=== PATIENT | male | born 1930 | race Caucasian/White ===

== ENCOUNTER 2016-05-03 20:50 | Inpatient (IN) | payer MEDICARE, OTHER ==
[2016-05-03] MEDS ORDERED: NALOXONE 0.4 MG/ML 1 ML VIAL IV PRN (21:21)
--- NOTE | 2016-05-03 21:21 | ED ---
General Adult HPI - General Chief complaint: Weakness Stated complaint: Weakness Time Seen by Provider: 05/03/16 20:59 Source: patient, EMS, RN notes reviewed, old records reviewed Mode of arrival: EMS Limitations: altered mental status, physical limitation - History of Present Illness Initial comments: Patient is a pleasant 85-year-old male presenting to the emergency Department as a transfer from [facility]. Patient transferred for level of care and cardiac care. Patient has dementia and is a very poor historian. Patient states he feels fine and has no complaints. Patient reportedly had dehydration and urinary tract infection. Patient had new-onset A. fib with RVR. Patient was provided fluid boluses. No reported history of atrial fibrillation. Review of Systems ROS Statement: Those systems with pertinent positive or pertinent negative responses have been documented in the HPI. ROS Other: All systems not noted in ROS Statement are negative. Constitutional: Denies: fever Eyes: Denies: eye pain ENT: Denies: ear pain Respiratory: Denies: cough Cardiovascular: Denies: chest pain Endocrine: Reports: fatigue Gastrointestinal: Denies: abdominal pain Genitourinary: Denies: urgency Skin: Denies: rash Neurological: Denies: headache Past Medical History Past Medical History: Dementia, Hyperlipidemia, Hypertension Additional Past Medical History / Comment(s): pt poor historian - info obtained from [employer] paperwork History of Any Multi-Drug Resistant Organisms: Unobtainable Past Surgical History: Heart Catheterization With Stent, Orthopedic Surgery Past Psychological History: No Psychological Hx Reported Smoking Status: Never smoker Past Alcohol Use History: None Reported, Unable to Obtain Past Drug Use History: None Reported General Exam Limitations: altered mental status, physical limitation General appearance: alert, in no apparent distress Head exam: Present: atraumatic Eye exam: Present: normal appearance, PERRL ENT exam: Present: mucous membranes dry Neck exam: Present: normal inspection Respiratory exam: Present: normal lung sounds bilaterally Cardiovascular Exam: Present: regular rate, normal rhythm GI/Abdominal exam: Present: soft. Absent: tenderness Extremities exam: Present: normal inspection Neurological exam: Present: alert, altered. Absent: motor sensory deficit Expanded Patient oriented to: Present: person. Absent: place, time Speech: Present: fluid speech Motor strength exam: RUE: 5, LUE: 5, RLE: 5, LLE: 5 Eye Response: (4) open spontaneously Motor Response: (6) obeys commands Verbal Response: (4) confused conversation Psychiatric exam: Present: normal affect, normal mood Skin exam: Absent: rash Course Vital Signs 05/03/16 20:58 Temperature 97.3 F L Pulse Rate 70 Respiratory 20 Rate Blood Pressure 98/60 O2 Sat by Pulse 97 Oximetry EKG Findings - EKG Comments: EKG Findings:: Normal sinus rhythm at 81. MD 132. QRS 90. QT 394. QTC 457. left axis. Normal QRS. Normal ST-T. Motion artifact is present. Medical Decision Making - Medical Decision Making Patient updated on plan. Case was discussed with practitioner Blanca head boys golf coach, who will admit for Dr. Kahn, covering for Dr. regine Chin. Admission orders written. Disposition Clinical Impression: Dehydration, Atrial fibrillation with RVR, Urinary tract infection Disposition: ADMITTED IP TO THIS HOSP
[2016-05-03] MEDS ORDERED: HEPARIN SODIUM,PORCINE 5,000 UNIT/ML 1 ML VIAL IV PRN (21:25)
[2016-05-03] MEDS ORDERED: HEPARIN SODIUM,PORCINE/D5W PMX 25,000 UNIT in DEXTROSE/WATER 1 500ML.BAG IV SCH (21:30)
[2016-05-03] MEDS: SODIUM CHLORIDE 0.9% 1,000 ML IV SCH (21:42)
[2016-05-03] MEDS ORDERED: LEVOFLOXACIN 500MG-D5W PMX 500 MG in DEXTROSE/WATER 1 100ML.BAG IVPB SCH (22:00)
[2016-05-03] MEDS: MORPHINE SULFATE 2 MG/ML SYRINGE IVP PRN (23:29)
[2016-05-04 00:09] LABS: Basophils % (A) 0 %; CH 29.6; CHCM 32.6; Eosinophils % (A) 0 %; HCT 33.9 % (39.0-53.0); HDW 2.72; HGB 10.9 gm/dL (13.0-17.5); Luc # (Auto) 0.13; Luc % (Auto) 1; Lymphocytes # (A) 0.6 k/uL (1.0-4.8); Lymphocytes % (A) 6 %; MCH 29.3 pg (25.0-35.0); MCHC 32.2 g/dL (31.0-37.0); MCV 91.1 fL (80.0-100.0); Mean Platelet Volume 8.1; Monocytes # (A) 0.4 k/uL (0-1.0); Monocytes % (A) 4 %; Neutrophils # (A) 9.2 k/uL (1.3-7.7); Neutrophils % (A) 89 %; RBC 3.72 m/uL (4.30-5.90); RDW 13.1 % (11.5-15.5); WBC 10.4 k/uL (3.8-10.6); WBC (Perox) 11.23
[2016-05-04 00:18] LABS: Calcium 7.6 mg/dL (8.4-10.2); Potassium 3.8 mmol/L (3.5-5.1)
[2016-05-04 00:50] LABS: Creatine Kinase MB 2.6 ng/mL (0.0-2.4); Troponin I 0.1 ng/mL (0.000-0.034)
[2016-05-04 06:07] LABS: Basophils % (A) 0 %; CH 29.3; CHCM 32.4; Eosinophils # (A) 0.1 k/uL (0-0.7); Eosinophils % (A) 1 %; HCT 32.1 % (39.0-53.0); HDW 2.76; HGB 10.6 gm/dL (13.0-17.5); Luc # (Auto) 0.14; Luc % (Auto) 1; Lymphocytes % (A) 10 %; MCHC 33.1 g/dL (31.0-37.0); MCV 90.8 fL (80.0-100.0); Mean Platelet Volume 7.9; Monocytes # (A) 0.5 k/uL (0-1.0); Monocytes % (A) 5 %; Neutrophils # (A) 8.8 k/uL (1.3-7.7); Neutrophils % (A) 84 %; RBC 3.53 m/uL (4.30-5.90); RDW 13.1 % (11.5-15.5); WBC 10.5 k/uL (3.8-10.6); WBC (Perox) 11.08
[2016-05-04 06:15] LABS: Calcium 7.7 mg/dL (8.4-10.2); Potassium 3.8 mmol/L (3.5-5.1); Total Bilirubin 0.4 mg/dL (0.2-1.3); Total Protein 5.1 g/dL (6.3-8.2)
[2016-05-04] MEDS: SODIUM CHLORIDE 0.9% 1,000 ML IV SCH (06:18)
[2016-05-04] MEDS: MORPHINE SULFATE 2 MG/ML SYRINGE IVP PRN ×2 (06:18→09:38)
[2016-05-04 06:39] LABS: Creatine Kinase MB 3.3 ng/mL (0.0-2.4); Troponin I 0.092 ng/mL (0.000-0.034)
[2016-05-04] MEDS ORDERED: FAMOTIDINE 20 MG TAB PO SCH (09:00)
--- NOTE | 2016-05-04 10:07 | ECHOF ---
Referral Reason:a fib MEASUREMENTS -------- HEIGHT: 177.8 cm WEIGHT: 67.1 kg BP: 109/63 RVIDd: 3.4 cm (< 3.3) IVSd: 1.2 cm (0.6 - 1.1) LVIDd: 4.2 cm (3.9 - 5.3) LVPWd: 1.1 cm (0.6 - 1.1) IVSs: 1.4 cm LVIDs: 3.7 cm LVPWs: 1.8 cm LA Diam: 3.4 cm (2.7 - 3.8) LAESV Index (A-L): 34.78 ml/m Ao Diam: 3.8 cm (2.0 - 3.7) AV Cusp: 1.7 cm (1.5 - 2.6) MV EXCURSION: 12.451 mm (> 18.000) MV EF SLOPE: 73 mm/s (70 - 150) EPSS: 1.2 cm MV E Tiago: 0.96 m/s MV DecT: 180 ms MV A Tiago: 0.83 m/s MV E/A Ratio: 1.16 AV maxP.27 mmHg AV meanP.80 mmHg RAP: 5.00 mmHg RVSP: 53.03 mmHg FINDINGS -------- Sinus rhythm. This was a technically good study. The left ventricular size is normal. There is borderline concentric left ventricular hypertrophy. Overall left ventricular systolic function is moderate-severely impaired with, an EF between 30 - 35 %. The right ventricle is mildly enlarged. LA is moderately dilated 34-39 ml/m2 The right atrium is normal in size. Aortic valve is trileaflet and is mildly thickened. There is mild aortic regurgitation. The mitral valve leaflets are mildly thickened. Mild mitral regurgitation is present. Moderate tricuspid regurgitation present. There is moderate pulmonary hypertension. The right ventricular systolic pressure, as measured by Doppler, is 53.03mmHg. Trace/mild (physiologic) pulmonic regurgitation. CONCLUSIONS -------- 1. Sinus rhythm. 2. There is mild aortic regurgitation. 3. The mitral valve leaflets are mildly thickened. 4. Mild mitral regurgitation is present. 5. Moderate tricuspid regurgitation present. 6. There is moderate pulmonary hypertension. 7. The right ventricular systolic pressure, as measured by Doppler, is 53.03mmHg. 8. Trace/mild (physiologic) pulmonic regurgitation. 9. This was a technically good study. 10. The left ventricular size is normal. 11. There is borderline concentric left ventricular hypertrophy. 12. Overall left ventricular systolic function is moderate-severely impaired with, an EF between 30 - 35 %. 13. The right ventricle is mildly enlarged. 14. LA is moderately dilated 34-39 ml/m2 15. The right atrium is normal in size. 16. Aortic valve is trileaflet and is mildly thickened. TELEVISION CABLE INSTALLER: Maria Eugenia Grider RDCS
[2016-05-04] MEDS ORDERED: ACETAMINOPHEN TAB 325 MG TAB PO PRN (13:14)
[2016-05-04] MEDS ORDERED: QUEtiapine 25 MG TAB PO PRN (13:24)
--- NOTE | 2016-05-04 13:57 | XR ---
EXAMINATION TYPE: XR chest 1V DATE OF EXAM: 05/04/2016 1:45 PM COMPARISON: 05/03/2016 HISTORY: 85-year-old male with fever and infection TECHNIQUE: Single frontal view of the chest is obtained. FINDINGS: Heart is borderline to mildly enlarged. Mild elongation of the thoracic aorta. Relative upper lung satish cencies with mild hyperinflation. There is some patchy left basilar opacity noted. Lung volumes are s lightly lower as compared to prior exam. IMPRESSION: 1. Some hypoventilatory changes. Correlate for possible underlying COPD. 2. Patchy left basilar infiltrate is new/increased.
[2016-05-04 14:09] LABS: Creatine Kinase MB 3.7 ng/mL (0.0-2.4)
[2016-05-04 14:10] LABS: Troponin I 0.119 ng/mL (0.000-0.034)
[2016-05-04] MEDS: traMADol 50 MG TAB PO PRN ×2 (14:24→22:13)
--- NOTE | 2016-05-04 14:33 | P.CRDCN ---
History of Present Illness Consult date: 05/04/16 Requesting physician: Salty Diamond Reason for Consult (text): Atrial fibrillation Chief complaint: Weakness History of present illness: This is an 85-year-old gentleman with history of dementia, hypertension, recent CVA, hyperlipidemia, coronary artery disease with prior stent placement, exact details unavailable. He presented to [facility] with symptoms of weakness. Patient had recently been in [facility] for a 5 day duration, treated for urinary tract infection. Patient apparently continued to get progressively weak and was having more notable mental status changes. Complaining of significant amount when he urinated of pain. According to the visiting nurse, patient had not been eating and drinking sufficient amounts either. While he was at [facility], and EKG was performed and patient was found to be in atrial fibrillation with rapid ventricular response, and for this reason he was transferred here to [facility]. EKG performed at [facility] did show atrial fibrillation with rapid ventricular response, on arrival here patient's EKG showed a normal sinus rhythm with no acute changes. He continues to be in normal sinus rhythm at the time of my examination, quite confused, family at bedside. Laboratory data on arrival here, hemoglobin 10.9, BUN 28, creatinine 1.5. Troponins 0.10, 0.92, 0.11. Echocardiogram with Doppler study performed on arrival here showed an ejection fraction of 30-35%. Moderate pulmonary hypertension. Blood pressure 118/60, heart rate in the 80s. At present, patient is on an aspirin daily, Lipitor 40 daily, Pepcid 20 mg daily, Proscar 5 mg daily, IV heparin, Seroquel when necessary, Flomax 0.4 mg daily, and ceftriaxone IV. It was explained to the patient and the family in detail the need for anticoagulation for stroke prevention. We will check to see if the patient has coverage for Eliquis, if so we will initiate TeleQuest 2-1/2 mg one tablet by mouth twice a day. Past Medical History Past Medical History: Dementia, Eye Disorder, Hearing Disorder / Deafness, Hyperlipidemia, Hypertension Additional Past Medical History / Comment(s): pt poor historian - info obtained from [employer] paperwork. PAUMA. Macular Degeneration. abdominal aneurysm History of Any Multi-Drug Resistant Organisms: None Reported Past Surgical History: Heart Catheterization With Stent, Orthopedic Surgery Additional Past Surgical History / Comment(s): Right knee artificial Date of Last Stent Placement:: unkown Past Psychological History: No Psychological Hx Reported Smoking Status: Never smoker Past Alcohol Use History: None Reported, Unable to Obtain Past Drug Use History: None Reported - Past Family History Father Family Medical History: Pneumonia Mother Family Medical History: Dementia Sister(s) Family Medical History: Cancer Additional Family Medical History / Comment(s): lung Brother(s) Family Medical History: Cancer Additional Family Medical History / Comment(s): unk Medications and Allergies Home Medications Medication Instructions Recorded Confirmed Type Acetaminophen Tab [Tylenol Tab] 650 mg PO Q6H PRN 05/03/16 05/03/16 History Aspirin EC [Ecotrin Low Dose] 81 mg PO DAILY 05/03/16 05/03/16 History Finasteride [Proscar] 5 mg PO DAILY 05/03/16 05/03/16 History Nitrofurantoin Monohyd/M-Cryst 100 mg PO Q12H 05/03/16 05/03/16 History [Macrobid] Rosuvastatin [Crestor] 20 mg PO DAILY 05/03/16 05/03/16 History Tamsulosin HCl [Flomax] 0.4 mg PO DAILY 05/03/16 05/03/16 History Allergies Allergy/AdvReac Type Severity Reaction Status Date / Time Penicillins Allergy Unknown Verified 05/03/16 21:16 Physical Exam Vitals: Vital Signs Temp Pulse Pulse Resp BP BP Pulse Ox 05/04/16 11:14 87 16 118/67 93 L 05/04/16 11:11 90 16 05/04/16 07:59 97.6 F 90 16 120/70 95 05/04/16 07:56 16 05/04/16 03:40 97.2 F L 77 16 109/63 93 L 05/03/16 23:04 97 F L 79 18 103/64 97 05/03/16 22:36 78 05/03/16 21:51 78 18 101/56 96 Intake and Output 05/03/16 05/04/16 05/04/16 22:59 06:59 14:59 Intake Total 646.256 25 Output Total 300 Balance 346.256 25 Intake: IV 500 Sodium Chloride 0.9% 1, 500 000 ml @ 100 mls/hr IV . Q10H JEREMI[facility] Rx#:[id number] Intake, IV Titration 146.256 Amount Heparin Sodium,Porcine/ 146.256 D5w Pmx 25,000 unit In Dextrose/Water 1 500ml. bag @ 12 UNITS/KG/HR 15. 84 mls/hr IV .Q24H JEREMIAS Rx #:[id number] Oral 25 Output: Urine 300 Other: Voiding Method Indwelling Catheter Indwelling Catheter Weight 67.5 kg PHYSICAL EXAMINATION: HEENT: Head is atraumatic, normocephalic. Pupils equal, round. Neck is supple. There is no elevated jugular venous pressure. HEART EXAMINATION: S1 and S2 systolic murmur is heard. CHEST EXAMINATION: Lungs are clear to auscultation and precussion. No chest wall tenderness is noted on palpation or with deep breathing. ABDOMEN: Soft, nontender. Bowel sounds are heard. No organomegaly noted. EXTREMITIES: 2+ peripheral pulses with no evidence of peripheral edema and no calf tenderness noted. NEUROLOGIC patient is awake, alert , confused. . Results 05/04/16 05:22 05/04/16 05:22 Cardiac Enzymes 05/03/16 05/04/16 05/04/16 Range/Units 23:28 05:22 05:22 AST 23 (17-59) U/L CK-MB (CK-2) 2.6 H* 3.3 H* (0.0-2.4) ng/mL Troponin I 0.100 H* 0.092 H* (0.000-0.034) ng/mL Coagulation 05/03/16 05/04/16 05/04/16 Range/Units 23:28 05:22 12:20 APTT 48.1 H 35.2 H 46.4 H (22.0-30.0) sec CBC 05/03/16 05/04/16 Range/Units 23:33 05:22 WBC 10.4 10.5 (3.8-10.6) k/uL RBC 3.72 L 3.53 L (4.30-5.90) m/uL Hgb 10.9 L 10.6 L (13.0-17.5) gm/dL Hct 33.9 L 32.1 L (39.0-53.0) % Plt Count 317 310 (150-450) k/uL Comprehensive Metabolic Panel 05/03/16 05/04/16 Range/Units 23:28 05:22 Sodium 143 146 H (137-145) mmol/L Potassium 3.8 3.8 (3.5-5.1) mmol/L Chloride 112 H 113 H (98-107) mmol/L Carbon Dioxide 22 20 L (22-30) mmol/L BUN 28 H 29 H (9-20) mg/dL Creatinine 1.50 H 1.50 H (0.66-1.25) mg/dL Glucose 113 H 97 (74-99) mg/dL Calcium 7.6 L 7.7 L (8.4-10.2) mg/dL AST 23 (17-59) U/L ALT 37 (21-72) U/L Alkaline Phosphatase 78 (38-126) U/L Total Protein 5.1 L (6.3-8.2) g/dL Albumin 2.1 L (3.5-5.0) g/dL Current Medications Generic Name Dose Route Start Last Admin Trade Name Freq PRN Reason Stop Dose Admin Acetaminophen 650 mg 05/04/16 13:14 Tylenol Tab PO Q6H PRN Pain Aspirin 81 mg 05/05/16 09:00 Aspirin PO DAILY [facility] Atorvastatin Calcium 40 mg 05/05/16 09:00 Lipitor PO DAILY [facility] Famotidine 20 mg 05/05/16 09:00 Pepcid PO DAILY [facility] Finasteride 5 mg 05/05/16 09:00 Proscar PO DAILY [facility] Heparin Sodium (Porcine) 0 unit 05/03/16 21:25 05/04/16 06:56 Heparin IV 3,375 unit PER PROTOCOL PRN Administration Low PTT Protocol Sodium Chloride 1,000 mls @ 100 mls/hr 05/03/16 21:30 05/04/16 06:18 Saline 0.9% IV 100 mls/hr .Q10H [facility] Administration Heparin Sodium/Dextrose 25,000 500 mls @ 15.84 mls/hr 05/03/16 21:30 06:56 unit/ IV Solution IV 15 units/kg/hr .Q24H JER[facility] 19.8 mls/hr Protocol Titration 12 UNITS/KG/HR Ceftriaxone Sodium 1,000 mg/ 50 mls @ 100 mls/hr 05/04/16 13:30 Sodium Chloride IVPB Q24H [facility] Naloxone HCl 0.2 mg 05/03/16 21:21 Narcan IV Q2M PRN Opioid Reversal Quetiapine Fumarate 25 mg 05/04/16 13:24 Seroquel PO 05/11/16 13:25 HS PRN Agitation Tamsulosin HCl 0.4 mg 05/05/16 09:00 Flomax PO DAILY [facility] Tramadol HCl 50 mg 05/04/16 13:19 Ultram PO QID PRN Pain/Discomfort Intake and Output 05/03/16 05/04/16 05/04/16 22:59 06:59 14:59 Intake Total 646.256 25 Output Total 300 Balance 346.256 25 Intake: IV 500 Sodium Chloride 0.9% 1, 500 000 ml @ 100 mls/hr IV . Q10H [facility]ER[facility] Rx#:[id number] Intake, IV Titration 146.256 Amount Heparin Sodium,Porcine/ 146.256 D5w Pmx 25,000 unit In Dextrose/Water 1 500ml. bag @ 12 UNITS/KG/HR 15. 84 mls/hr IV .Q24H [facility] Rx #:[id number] Oral 25 Output: Urine 300 Other: Voiding Method Indwelling Catheter Indwelling Catheter Weight 67.5 kg 05/04/16 05:22 05/04/16 05:22 EKG Interpretations (text) EKG shows normal sinus rhythm with no acute changes. Assessment and Plan Plan: Assessment and plan #1 symptoms of weakness with evidence of UTI, currently on IV antibiotics. #2 atrial fibrillation with rapid ventricular response, paroxysmal in nature, currently in normal sinus rhythm. #3 hypertension #4 hyperlipidemia #5 known history of coronary artery disease with prior stent placement #6 recent CVA #7 dementia #8 ischemic cardiomyopathy with an ejection fraction of 30-35%. Plan We will start the patient on Eliquis 2-1/2 mg one tablet by mouth twice a day, discontinue IV heparin, continue aspirin daily, Lipitor daily, start low-dose beta ayah, as well as small dose of TRAVIS inhibitor. We will check lytes BUN and creatinine in the morning. Consider the addition of Aldactone. Further recommendations to follow. DNP note has been reviewed, I agree with a documented findings and plan of care. Patient was seen and examined.
[2016-05-04 14:36] VITALS: BMI 21.3
[2016-05-04] MEDS: LACTATED RINGERS 1,000 ML IV SCH (16:37)
--- NOTE | 2016-05-04 17:01 | HP ---
DATE OF ADMISSION: Patient is an 85-year-old gentleman with advanced dementia, came in, was seen in [facility] for symptoms of generalized weakness and patient continued to get progressively weak and patient's baseline mental status is alert and oriented x1, appears to have advanced dementia. Patient was being treated for urinary tract infection, although patient denied any UTI-like symptoms. Patient was being treated for urinary tract infection for altered mental status. I did not get a chance to review the medical records from the other hospital, although patient is on levofloxacin, which apparently made him more confused and levofloxacin is known to do that. The patient has borderline leukocytosis. Unknown whether patient has benign prostatic hypertrophy or not and patient was found to have atrial fibrillation with rapid ventricular rate. Because of which patient was subsequently transferred here. Patient had an echocardiogram, which showed ejection fraction of 30% to 35% and Cardiology is recommending anticoagulation but I discussed with the family as patient has advanced dementia and poor functionality. The patient's prognosis is extremely poor and our main aim is to improve his functionality as much as possible and pain-free rather than preventing stroke in his scenario. Same thing was discussed with the family and decision left to Cardiology and family. I will obtain a UA and urine culture. Patient appears to be dehydrated and nitrofurantoin is not a good idea. Because of confusion levofloxacin is not a good idea either and patient's allergic reaction to PENICILLINS is not known. Because of which patient was started on Rocephin giving him benefit of doubt, although my suspicion is low for urinary tract infection in his scenario. Patient is on morphine, which will be discontinued and patient will be start on tramadol for pain. Patient was started on lisinopril as his creatinine is not that bad. I will go ahead and continue that. Lisinopril was started by Cardiology. Patient's chest x-ray did not show any pulmonary edema. Patient's ejection fraction is 30% to 35%. Because of which I will continue the IV fluids in the form of lactated Ringer's because of hyperchloremia and intravascular volume depletion. Patient tends to be on the dehydrated side, hypovolemic side because of his advanced dementia and a poor oral intake. Patient was started on aspirin. Patient has by portal architect at [facility]. Patient has mildly elevated troponins, without any chest pain, probably related to renal failure and atrial fibrillation rather than acute myocardial infarction. Patient does not have any chest pain. Review of systems unable to obtain except for those mentioned above. PAST MEDICAL HISTORY: Significant for dementia, which is advanced and probably senile versus Alzheimer's dementia. Hearing disorder, atrial fibrillation, macular degeneration, cardiac catheterization and stent placement, artificial right knee. SOCIAL HISTORY: Denied any smoking, alcohol abuse or any drug abuse. FAMILY HISTORY: Father had pneumonia. Mother had dementia. Sister had lung cancer and brother had some kind of cancer; unknown. Home medications include: Acetaminophen, aspirin, finasteride, nitrofurantoin, atorvastatin and tamsulosin. ALLERGIES: ALLERGIC TO PENICILLIN. PHYSICAL EXAMINATION: Temperature 97.6, pulse of 87, respiratory rate of 16, blood pressure is 118/67, saturating at 93% on room air. GENERAL: Patient is alert and oriented x around 1. HEENT: Pupils are round and equally reacting to light. EOMI. No scleral icterus. No conjunctival pallor. Normocephalic, atraumatic. No pharyngeal erythema. No thyromegaly. CARDIOVASCULAR: Irregularly irregular rhythm. Patient is not tachycardic anymore. PULMONARY: Chest is clear to auscultation, no wheezing or crackles. ABDOMEN: Soft, nontender, nondistended, normoactive bowel sounds. No palpable organomegaly. MUSCULOSKELETAL: No joint swelling or deformity. EXTREMITIES: No cyanosis, clubbing, or pedal edema. NEUROLOGICAL: Does not appear to have any focal neurological deficits. SKIN: No rashes. LABORATORY DATA: CBC, CMP are abnormal for mildly elevated sodium of 145, chloride of 113, BUN of 29, creatinine of 1.5, troponin 0.1, 0.092, and 0.119, fairly stable at that level. ASSESSMENT AND PLAN: 1. Symptoms of generalized weakness. I believe is secondary to deconditioning rather urinary tract infection, although I cannot completely rule out urinary tract infection, because of which further management of urinary tract infection as mentioned above. 2. Atrial fibrillation which is rate controlled at this point of time. Continue with present medications for that and regarding anticoagulation as mentioned above. 3. Hypertension. 4. Hyperlipidemia. 5. Coronary artery disease with prior stent placement. 6. Recent transient ischemic attack. 7. Ischemic cardiomyopathy, ejection fraction of 30% to 35%. Patient is on the hypovolemic side because of which I will go ahead and continue the IV fluids. I will recheck the kidney function. 8. Acute renal failure secondary to intravascular volume depletion from poor oral intake. 9. Benign prostatic hypertrophy. Proscar will be continued. 10. Advanced dementia. 11. I still have to discuss regarding overall goals of care. Patient is appropriate for DO NOT RESUSCITATE. Conservative management. Avoid benzos, barbiturates, opiates for pain and will use Seroquel if needed for hospitalization related delirium if it happens tonight. Cautiously hydrate him considering his congestive heart failure history. 12. The patient's primary care physician is none.
[2016-05-04 18:49] LABS: Appearance,Urine Cloudy (Clear); Bacteria,Urine Rare /hpf; Bilirubin,Urine Negative (Negative); Glucose,Urine (UA) Negative (Negative); Ketones,Urine Negative (Negative); Leukocyte Esterase,Urine Moderate (Negative); Mucus,Urine Rare /hpf; Nitrite,Urine Negative (Negative); Particle Count 8240; Protein,Urine 1+ (Negative); RBC,Urine 35 /hpf (0-5); Specific Gravity,Urine 1.016 (1.001-1.035); Squamous Epithelial Cell,Urine <1 /hpf (0-4); UA Billing (MACRO vs. MICRO) MICRO; Urobilinogen,Urine <2.0 mg/dL (<2.0); WBC,Urine 38 /hpf (0-5)
[2016-05-04] MEDS: APIXABAN 2.5 MG TABLET PO SCH (20:42)
[2016-05-04] MEDS: METOPROLOL TARTRATE 25 MG TAB PO SCH (20:53)
[2016-05-04] MEDS ORDERED: LEVOFLOXACIN 250MG-D5W PMX 250 MG in DEXTROSE/WATER 1 50ML.BAG IVPB SCH (21:00)
[2016-05-05] MEDS ORDERED: METOPROLOL TARTRATE 25 MG TAB PO STA (01:28)
[2016-05-05] MEDS ORDERED: DILTIAZEM 125 MG in SODIUM CHLORIDE 0.9% 100 ML IV SCH (03:30)
[2016-05-05] MEDS: LACTATED RINGERS 1,000 ML IV SCH (06:09)
[2016-05-05 06:44] LABS: CH 29.3; CHCM 31.3; HCT 34.2 % (39.0-53.0); HDW 2.75; HGB 10.7 gm/dL (13.0-17.5); Hypochromasia Slight; MCH 29.3 pg (25.0-35.0); MCHC 31.2 g/dL (31.0-37.0); Mean Platelet Volume 8.3; RBC 3.64 m/uL (4.30-5.90); RDW 13.1 % (11.5-15.5); WBC 11.9 k/uL (3.8-10.6)
[2016-05-05 06:56] LABS: Calcium 8.4 mg/dL (8.4-10.2); Potassium 3.9 mmol/L (3.5-5.1)
[2016-05-05] MEDS: METOPROLOL TARTRATE 25 MG TAB PO SCH (08:59)
[2016-05-05] MEDS: APIXABAN 2.5 MG TABLET PO SCH (08:59)
[2016-05-05] MEDS ORDERED: ASPIRIN 81 MG CHEW PO SCH (09:00)
[2016-05-05] MEDS ORDERED: TAMSULOSIN 0.4 MG CAP.ER.24H PO SCH (09:00)
[2016-05-05] MEDS ORDERED: LISINOPRIL 2.5 MG TAB PO SCH (09:00)
[2016-05-05] MEDS ORDERED: FINASTERIDE 5 MG TAB PO SCH (09:00)
[2016-05-05] MEDS ORDERED: FAMOTIDINE 20 MG TAB PO SCH (09:00)
[2016-05-05] MEDS ORDERED: ATORVASTATIN 40 MG TAB PO SCH (09:00)
[2016-05-05] MEDS: traMADol 50 MG TAB PO PRN ×2 (10:55→16:57)
[2016-05-05 14:31] VITALS: BP 90/62; PULSE 70; RESP 14; TEMP 97
[2016-05-05] MEDS ORDERED: FUROSEMIDE 10 MG/ML 4 ML VIAL IV STA (14:55)
--- NOTE | 2016-05-05 15:26 | DS ---
DATE OF ADMISSION: Patient is an 85-year-old gentleman admitted with advanced dementia, is admitted with symptoms of generalized weakness. Patient was found to be in atrial fibrillation with rapid ventricular rate. Patient also has congestive heart failure, chronic systolic dysfunction without any acute exacerbation, although he started retaining fluid after IV fluid resuscitation. Because of which IV fluids were discontinued. We will give him a dose of Lasix although I do not believe patient will require Lasix at home. The reasons behind that is patient has significantly poor oral intake, because of his advanced dementia and he is not going to drink a lot of water at home. Patient did well with ( ) patient is also found to have left lower lobe pneumonia. Unsure about urinary tract infection. Patient has mildly elevated troponin secondary to atrial fibrillation and patient will be discharged on Ceftin and azithromycin. Along with that, we can use Seroquel for his agitation episodes if he has any, although he did not have any significant agitation episodes here. Avoid benzodiazepines, barbiturates, opiates and anticholinergic medications in him due to his advanced dementia. I recommend not to use medications like Ativan, Clonazepam or Xanax on the patient for agitation. Patient although can use Seroquel on a p.r.n. basis if needed. Patient also has chronic Floyd catheter, which will be replaced before I send him out and patient has urologist there. The patient will need to follow up with urologist and for further urodynamic study. The patient was started on metoprolol here. The patient was seen and examined on the day of discharge. Vital signs stable. PHYSICAL EXAMINATION: GENERAL: Alert and oriented times around 1 to 2, which is his baseline. HEENT: Pupils are round and equally reacting to light. EOMI. No scleral icterus. No conjunctival pallor. Normocephalic, atraumatic. No pharyngeal erythema. No thyromegaly. CARDIOVASCULAR: S1 and S2 present. No murmurs, rubs, or gallops. PULMONARY: Chest is clear to auscultation, no wheezing or crackles. ABDOMEN: Soft, nontender, nondistended, normoactive bowel sounds. No palpable organomegaly. MUSCULOSKELETAL: No joint swelling or deformity. EXTREMITIES: No cyanosis, clubbing, or pedal edema. NEUROLOGICAL: Gross neurological examination did not reveal any focal deficits. SKIN: No rashes. ASSESSMENT AND PLAN: 1. Symptoms of generalized weakness secondary to deconditioning mostly along with left lower lobe pneumonia, possible community-acquired pneumonia and possible pneumococcal in nature. Urinary tract infection cannot be ruled out along with that patient also has atrial fibrillation, which may be precipitated by infection and sepsis. 2. Atrial fibrillation, rate controlled at this point of time. 3. Hypertension. 4. Hyperlipidemia. 5. Coronary artery disease. 6. Ischemic cardiomyopathy, ejection fraction of 30% to 35%. Patient is euvolemic, fairly euvolemic at the time, although patient has mild pulmonary edema, which we will treat with a dose of Lasix before discharge. 7. Acute renal failure with possible chronic kidney disease Stage III secondary to hypertensive nephrosclerosis. 8. Benign prostatic hypertrophy. 9. 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 10. Generalized deconditioning. Patient will be discharged today to subacute rehabilitation in [facility]. Activity as tolerated. Cardiac and congestive heart failure diet. Instructions will be provided. Patient is a candidate for anticoagulation but after discussion with the family, I had an extensive discussion with the family yesterday regarding anticoagulation, and his prognosis is extremely poor, probably less than one year. Because of that reason, patient will not benefit from anticoagulation as prevention of stroke in his scenario will not improve his functionality. Will not change his overall poor prognosis because of which after discussion with the family, the patient's family declined to use anticoagulation. Patient apparently had a recent stroke and I believe not using anticoagulation is totally an appropriate decision in my opinion. The patient will be discharged today. Spent greater than 35 minutes in total discharge process.
--- NOTE | 2016-05-05 15:47 | XR ---
EXAMINATION TYPE: XR chest 2V DATE OF EXAM: 05/05/2016 12:46 PM COMPARISON: 04 May 2016 HISTORY: Pneumonia TECHNIQUE: Frontal and lateral views of the chest are obtained. FINDINGS: Prominent lung volumes could be indicative of underlying COPD. Patchy basilar density pers ists, heart is enlarged. Interstitium somewhat prominent. No evident pneumothorax. Patient is rotated and there are overlying cardiac leads. Pulmonary vascularity and zeeshan not significantly changed. The heart is enlarged. IMPRESSION: Correlate for possible pulmonary venous hypertension and interstitial edema. There may be basilar atelectasis or airspace disease, correlate, follow-up recommended.
--- NOTE | 2016-05-05 16:09 | P.PN ---
Subjective Principal diagnosis: eYe viera This is an 85-year-old gentleman with history of dementia, hypertension, recent CVA, hyperlipidemia, coronary artery disease with prior stent placement, exact details unavailable. He presented to [facility] with symptoms of weakness. Patient had recently been in [facility] for a 5 day duration, treated for urinary tract infection. Patient apparently continued to get progressively weak and was having more notable mental status changes. Complaining of significant amount when he urinated of pain. According to the visiting nurse, patient had not been eating and drinking sufficient amounts either. While he was at [facility], and EKG was performed and patient was found to be in atrial fibrillation with rapid ventricular response, and for this reason he was transferred here to [facility]. Patient was started on Eliquis yesterday, however in spite of a long conversation with the family, their choices for the patient not to be on anticoagulation because of his risk for falls. Therefore the Eliquis was discontinued today. Throughout the night last night, heart rate was up in the 120 to 1:30 range. 80 this morning. Patient was given an extra dose of metoprolol tartrate continues to be on metoprolol tartrate 25 twice a day along with Cardizem 5 mg per hour. Objective - Vital Signs Vital signs: Vital Signs Temp 97 F L 05/05/16 12:00 Pulse 70 05/05/16 12:00 Resp 14 05/05/16 12:00 BP 90/62 05/05/16 12:00 Pulse Ox 98 05/05/16 12:00 Intake & Output 05/04/16 05/05/16 05/05/16 18:59 06:59 18:59 Intake Total 1025 960 0 Output Total 400 300 Balance 1025 560 -300 Weight 67.5 kg 69 kg Intake: IV 1000 Sodium Chloride 0.9% 1, 1000 000 ml @ 100 mls/hr IV . Q10H JEREMIAS Rx#:[id number] Intake, IV Titration 900 Amount Lactated Ringers 1,000 ml 900 @ 75 mls/hr IV .[id number] JEREMIAS Rx#:[id number] Oral 25 60 0 Output: Urine 400 300 Uretheral (Floyd) 300 Other: Voiding Method Indwelling Catheter Indwelling Catheter Indwelling Catheter - Exam PHYSICAL EXAMINATION: HEENT: Head is atraumatic, normocephalic. Pupils equal, round. Neck is supple. There is no elevated jugular venous pressure. HEART EXAMINATION: S1 and S2 systolic murmur is heard. CHEST EXAMINATION: Lungs are clear to auscultation and precussion. No chest wall tenderness is noted on palpation or with deep breathing. ABDOMEN: Soft, nontender. Bowel sounds are heard. No organomegaly noted. EXTREMITIES: 2+ peripheral pulses with no evidence of peripheral edema and no calf tenderness noted. NEUROLOGIC patient is awake, alert , confused. . - Labs CBC & Chem 7: 05/05/16 05:58 05/05/16 05:58 Labs: Abnormal Lab Results - Last 24 Hours (Table) 05/04/16 05/05/16 05/05/16 Range/Units 18:00 05:58 05:58 WBC 11.9 H (3.8-10.6) k/uL RBC 3.64 L (4.30-5.90) m/uL Hgb 10.7 L (13.0-17.5) gm/dL Hct 34.2 L (39.0-53.0) % Sodium 148 H (137-145) mmol/L Chloride 115 H (98-107) mmol/L Carbon Dioxide 19 L (22-30) mmol/L BUN 28 H (9-20) mg/dL Creatinine 1.57 H (0.66-1.25) mg/dL Glucose 113 H (74-99) mg/dL Urine Protein 1+ H (Negative) Urine Blood Moderate H (Negative) Ur Leukocyte Esterase Moderate H (Negative) Urine RBC 35 H (0-5) /hpf Urine WBC 38 H (0-5) /hpf Urine Bacteria Rare H (None) /hpf Urine Mucus Rare H (None) /hpf Microbiology - Last 24 Hours (Table) 05/04/16 18:00 Urine Culture - Preliminary Urine,Catheterized Assessment and Plan Plan: Assessment and plan #1 symptoms of weakness with evidence of UTI, currently on IV antibiotics. #2 atrial fibrillation with rapid ventricular response, paroxysmal in nature, currently in normal sinus rhythm. #3 hypertension #4 hyperlipidemia #5 known history of coronary artery disease with prior stent placement #6 recent CVA #7 dementia #8 ischemic cardiomyopathy with an ejection fraction of 30-35%. Plan Eliquis today will be discontinued as the family does not want the patient to be on blood thinners because of the risk for fall. We will discontinue the IV Cardizem drip, increase beta ayah dose. We will follow this patient with you now on an as-needed basis only, please don't hesitate to call with any questions. DNP note has been reviewed, I agree with a documented findings and plan of care. Patient was seen and examined.
[2016-05-05] MEDS ORDERED: METOPROLOL TARTRATE 25 MG TAB PO SCH (22:00)
== END 2016-05-05 21:37 | DRG 308 ==
LOC: EC 20:50 → 6SEL 21:21
PROVIDERS: ADMIT Internal Medicine; ATTEND Internal Medicine
DX: I48.0 Paroxysmal atrial fibrillation (principal); J18.9 Pneumonia, unspecified organism; N17.9 Acute kidney failure, unspecified; A41.9 Sepsis, unspecified organism; N18.3 Chronic kidney disease, stage 3 (moderate); I13.0 Hypertensive heart and chronic kidney disease with heart failure and stage 1 through stage 4 chronic kidney disease, or unspecified chronic kidney disease; I50.22 Chronic systolic (congestive) heart failure; N39.0 Urinary tract infection, site not specified; E87.8 Other disorders of electrolyte and fluid balance, not elsewhere classified; F03.90 Unspecified dementia, unspecified severity, without behavioral disturbance, psychotic disturbance, mood disturbance, and anxiety; E86.1 Hypovolemia; E86.0 Dehydration; I27.2 Other secondary pulmonary hypertension; I25.5 Ischemic cardiomyopathy; E78.5 Hyperlipidemia, unspecified; Z66 Do not resuscitate; N40.0 Benign prostatic hyperplasia without lower urinary tract symptoms; H91.90 Unspecified hearing loss, unspecified ear; I25.10 Atherosclerotic heart disease of native coronary artery without angina pectoris; I71.4 Abdominal aortic aneurysm, without rupture; H35.30 Unspecified macular degeneration; Z96.651 Presence of right artificial knee joint; Z95.5 Presence of coronary angioplasty implant and graft; Z86.73 Personal history of transient ischemic attack (TIA), and cerebral infarction without residual deficits; Z88.0 Allergy status to penicillin; Z79.2 Long term (current) use of antibiotics; Z79.82 Long term (current) use of aspirin; Z79.899 Other long term (current) drug therapy
CPT/HCPCS: 71010; 71020; 80048; 80053; 81001; 82550; 82553; 84484; 85025; 85027; 85730; 87086; 93005; 93306; 99285